=== PATIENT | male | born 1990 | race Caucasian/White ===

== ENCOUNTER 2016-10-02 19:30 | Emergency (ER) | payer OTHER ==
[2016-10-02 20:25] VITALS: BP 126/88
== END 2016-10-02 20:25 | disposition home or self-care (01) ==
LOC: ED 19:30
DX: J02.9 Acute pharyngitis, unspecified (principal)

== ENCOUNTER 2019-01-04 08:36 | Emergency (ER) | payer SELFPAY ==
[~2019-01-04] VITALS: Ht 172.7 cm; Wt 87.1 kg
[2019-01-04 08:51] VITALS: Ht 172.7 cm; Wt 87.1 kg
[2019-01-04 09:25] LABS: BASOPHIL % 0.3 % (0-2); PLATELET COUNT 287 x10^3mcL (130-400)
[2019-01-04 09:48] LABS: CARBON DIOXIDE 23.1 mmol/L (21-32); CHLORIDE SERUM 104 mmol/L (98-107); GFR1 > 60 mL/min; GLUCOSE SERUM 115 mg/dL (74-106); SODIUM SERUM 140 mmol/L (136-145)
[2019-01-04 09:53] LABS: ALBUMIN 4.4 g/dL (3.4-5.0); ALKALINE PHOSPHATASE 87 U/L (46-116); ALT/SGPT 55 U/L (16-63); AST/SGOT 26 U/L (15-37); BILIRUBIN TOTAL 0.37 mg/dL (0.20-1.00); TOTAL PROTEIN, SERUM 8.2 g/dL (6.4-8.2)
[2019-01-04 15:15] VITALS: BP 118/69
== END 2019-01-04 15:15 | disposition home or self-care (01) ==
LOC: ED 08:36
DX: K52.9 Noninfective gastroenteritis and colitis, unspecified (principal); K31.84 Gastroparesis
CPT/HCPCS: J1885; J2060; J2270; J2405; J3010; J7030